=== PATIENT | female | born 1960 | race Caucasian/White ===

== ENCOUNTER → 2016-07-25 | Day surgery (SDC) | payer OTHER ==
[~2016-07-25] VITALS: Ht 166.4 cm; Wt 122.7 kg
[~2016-07-25] MED LIST: AMPICILLIN-SULBACTAM INJ 3 GM VIAL ONE; BACITRACIN TOP OINT 15 GM TUBE ONE; CEFP250T PO; DEXAMETHASONE SOD PHOS 4 MG/ML VIAL ONE; FAMOTIDINE 20 MG/2 ML VIAL ONE; FLUO-1 PO; HYDR-3583 PO; HYDROmorphone HCL PF 1 MG/ML VIAL ONE; LACTATED RINGER'S 1000 ML INJ 1,000 ML IV ONE; LACTATED RINGER'S 1000 ML INJ 1,000 ML ONE; LIDOCAINE 1%/EPINEPHrine 1:100,000 SOLN 30 ML VIAL ONE; MULT1TAB84 PO; NORC5TAB PO; ONDANSETRON HCL 4 MG/2 ML VIAL IV PUSH ONE; OXYMETAZOLINE HCL 0.05% 15 ML NASAL SPRAY ONE; PROMETHAZINE INJ 25 MG/ML VIAL ONE; PROPOFOL 200 MG/20 ML AMP IV ONE; SODIUM CHLORIDE 0.9% INJ 100 ML ONE; TRAM50TA PO; fentaNYL CITRATE 250 MCG/5 ML AMP ONE
[2016-07-25 06:45] VITALS: BP 111/62; PULSE 60; RESP 24; TEMP 98.2; O2SAT 97
[2016-07-25] MEDS: MIDAZOLAM HCL 2 MG/2 ML VIAL ONE ×2 (07:41→08:20)
[2016-07-25 09:26] VITALS: PULSE 63
[2016-07-25 11:25] VITALS: BP 134/67; PULSE 64; RESP 18; TEMP 97.8; O2SAT 98
--- NOTE | 2016-07-25 12:52 | MP ---
cc: BEVERLY HOOVER M.D. DATE OF SURGERY 07/25/2016 ATTENDING PHYSICIAN Beverly Hoover MD PREOPERATIVE DIAGNOSIS 1. Nasal airway obstruction 2. Nasal septal deviation 3. 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 Nasal airway obstruction 2. Nasal septal deviation 3. 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 Open repair nasal septal fracture. 2. Bilateral submucosal resection of inferior turbinates. The indications are documented in the history and physical. DESCRIPTION OF OPERATION The patient was taken to OR #2 and placed in the supine position. Following induction of general anesthesia and intubation, the nose was packed bilaterally with cotton pledgets saturated in 0.05% Oxymetazoline. The nasal septum and inferior turbinates were injected with a total of 60 mL of 1% Xylocaine with epinephrine 1:100,000 and she was then prepped and draped for surgery. The packing was removed and a hemitransfixion incision was made in the left nasal vestibule. Through this incision, the mucosa was elevated as far as the junction of the bony cartilaginous septum. There was evidence of previous septoplasty with a small area of cartilage being removed from the center of the quadrangular cartilage. A cumulative area of 2 x 2 cm of the quadrangular cartilage was removed preserving 1.5 cm dorsal and caudal cartilaginous struts. The remainder of the mucosa was then elevated from the bony septum and maxillary crest. These were removed using Brown Fish forceps and Christiano septal forceps. The maxillary crest was removed using a 6-mm Bea[place]ont chisel. The incision was then closed with a running suture of 4-0 chromic. The mucosal layers of the septum were approximated to each other with a quilting stitch of 4-0 plain gut. The inferior turbinates were then fractured out medially and stab incisions made at their inferior surfaces. Through these incisions, the submucosal soft tissue was reduced using a curette and preserving the conchal bone. The incision was then cauterized using the suction Bovie at 35 buck and the remnants of the inferior turbinates were then relateralized to the lateral nasal wall. The nose was then packed with Merocel tampons coated in bacitracin ointment and the procedure was terminated. The patient was reversed from anesthesia and taken to recovery in good condition. There were no complications. Blood loss was 100 ml. MD JONO Block/BRAD /10:38 AM /12:43 PM
== END | disposition home or self-care (01) ==
LOC: PHSDC 06:21
PROVIDERS: ATTEND Otolaryngology
DX: J34.2 Deviated nasal septum (principal); J34.3 Hypertrophy of nasal turbinates; J32.8 Other chronic sinusitis; R09.81 Nasal congestion; R42 Dizziness and giddiness
CPT/HCPCS: 00160; 30140; 30520; J0295; J1100; J1170; J2250; J2405; J2550; J3010; J7120

== ENCOUNTER → 2017-02-21 | Day surgery (SDC) | payer OTHER ==
[~2017-02-21] MED LIST changes: -AMPICILLIN-SULBACTAM INJ 3 GM VIAL ONE; -BACITRACIN TOP OINT 15 GM TUBE ONE; +BUPIVACAINE HCL PF 0.5% 30 ML VIAL ONE; -DEXAMETHASONE SOD PHOS 4 MG/ML VIAL ONE; -FAMOTIDINE 20 MG/2 ML VIAL ONE; -HYDROmorphone HCL PF 1 MG/ML VIAL ONE; -LACTATED RINGER'S 1000 ML INJ 1,000 ML IV ONE; -LIDOCAINE 1%/EPINEPHrine 1:100,000 SOLN 30 ML VIAL ONE; +MIDAZOLAM HCL 2 MG/2 ML VIAL ONE; -ONDANSETRON HCL 4 MG/2 ML VIAL IV PUSH ONE; -OXYMETAZOLINE HCL 0.05% 15 ML NASAL SPRAY ONE; -PROMETHAZINE INJ 25 MG/ML VIAL ONE; -PROPOFOL 200 MG/20 ML AMP IV ONE; +PROPOFOL 500 MG/50 ML BTL IV ONE; -SODIUM CHLORIDE 0.9% INJ 100 ML ONE; +ceFAZolin 2 GM PREMIX 50 ML ONE; -fentaNYL CITRATE 250 MCG/5 ML AMP ONE
--- NOTE | 2017-02-25 09:45 | TN ---
cc: PREETHI STEVENSON DPM DATE OF : 1960 DATE OF SURGERY: 02/21/2017 INDICATIONS FOR PROCEDURE: The patient is a 56 year-old female who presented to my clinic complaining of soft tissue lesion to the dorsal aspect of the right second toe near the distal interphalangeal joint area. She stated that it was becoming enlarged and rubbing in her shoes causing pain, that she attempted to pop it but wanted to be sure that she was not going to cause any additional issues that could be discussed with her that she should not mess with it. She wanted to discuss excision of the lesion. I discussed with her the risks, benefits and potential complications of surgery and she agreed to move forward with excision of soft tissue mass right second toe and consented to the procedure. She was seen in preop holding by myself, nursing staff and Anesthesia, where the correct patient, side and site were all confirmed to be correct and the right second toe. She was then seen in preop holding and last minute questions were answered to her satisfaction. She was taken back to the surgical suite in supine position. DESCRIPTION OF PROCEDURE: The right foot was prepped and draped in normal sterile fashion followed by time-out as per facility protocol. Following this attention was directed to the right dorsal second toe where two semi elliptical incisions were made in order to fully excise the soft tissue mass to the right dorsal, lateral, second digit distal, interphalangeal joint area there was a small cyst noted to that area, approximately 0.5 cm x 0.4 cm x 0.2 cm. It was excised in its entirety followed by irrigation and closure with 2-0 nylon suture. Following this a dressing consisting of Xeroform, 4x4, Augustina, Inocente bandage to the right foot was applied. She tolerated the procedure and anesthesia well without complications and was taken back to PACU with vital signs stable and vascular status intact to the right foot. She underwent TIVA anesthesia plus 20 mL 0.5% Marcaine plain. She will be weightbearing as tolerated right foot, surgical shoe, and follow up in clinic in one week for bandage change SHORT OPERATIVE NOTE. SURGEON aMrissa Stevenson MD. ADJUSTMENT EXAMINER: Staff. PREOPERATIVE DIAGNOSIS: Soft tissue mass, right second toe. POSTOPERATIVE DIAGNOSIS: Soft tissue mass, right second toe. PROCEDURE: Excision of soft tissue mass, right second toe. PATHOLOGY: Soft tissue mass right second toe to pathology. ESTIMATED BLOOD LOSS: Minimal COMPLICATIONS: None. ANESTHESIA: TIVA plus 20 mL of 0.5% Marcaine plain. TOURNIQUET No tourniquet was utilized. CONDITION: Stable to PACU. DISPOSITION: Weightbearing as tolerated, right foot, surgical shoe. Preethi MAYERS/RICHELLE /9:14 AM /9:31 AM
== END | disposition home or self-care (01) ==
LOC: ESDC 06:39
PROVIDERS: ATTEND Podiatrist Foot & Ankle Surgery
DX: D23.71 Other benign neoplasm of skin of right lower limb, including hip (principal)
CPT/HCPCS: 00400; 11420; 88307; J0690; J2250; J3010; J7120; 88305